=== PATIENT | female | born 1980 | race Caucasian/White ===

== ENCOUNTER → 2019-07-16 | Outpatient (CLI) | payer MEDICAID, OTHER ==
[2019-07-16 13:23] LABS: Basophils # (A) 0.1 k/uL (0-0.2); Basophils % (A) 1 %; Eosinophils # (A) 0.3 k/uL (0-0.7); Eosinophils % (A) 3 %; HGB 15.6 gm/dL (11.4-16.0); Lymphocytes # (A) 3.1 k/uL (1.0-4.8); Lymphocytes % (A) 27 %; MCH 29.7 pg (25.0-35.0); MCHC 33.1 g/dL (31.0-37.0); MCV 89.7 fL (80.0-100.0); Mean Platelet Volume 6.1; Monocytes # (A) 0.5 k/uL (0-1.0); Monocytes % (A) 4 %; Neutrophils # (A) 7.3 k/uL (1.3-7.7); Neutrophils % (A) 64 %; Platelet Count 373 k/uL (150-450); RBC 5.24 m/uL (3.80-5.40); WBC 11.5 k/uL (3.8-10.6)
[2019-07-16 15:20] LABS: Appearance,Urine Clear (Clear); Bilirubin,Urine Negative (Negative); Blood,Urine Negative (Negative); Color,Urine Yellow; Glucose,Urine (UA) Negative (Negative); Ketones,Urine Negative (Negative); Leukocyte Esterase,Urine Negative (Negative); Nitrite,Urine Negative (Negative); PH, Urine 6.5 (5.0-8.0); Protein,Urine Negative (Negative); Specific Gravity,Urine 1.016 (1.001-1.035); Urobilinogen,Urine <2.0 mg/dL (<2.0)
--- NOTE | 2019-07-16 15:27 | XR ---
EXAMINATION TYPE: XR chest 2V DATE OF EXAM: 07/16/2019 CLINICAL HISTORY: Chest pain TECHNIQUE: Frontal and lateral views of the chest are obtained. COMPARISON: None FINDINGS: There is no focal air space opacity, pleural effusion, or pneumothorax seen. The cardiac silhouette size is within normal limits. The osseous structures are intact. IMPRESSION: No acute cardiopulmonary process.
[2019-07-16 15:38] LABS: Erythrocyte Sedimentation Rate 7 mm/hr (0-20)
[2019-07-16 18:45] LABS: Rheumatoid Factor 6 IU/mL (0-15)
[2019-07-16 18:54] LABS: Vitamin D 25 Hydroxy 17.2 ng/mL (30.0-100.0)
[2019-07-16 19:01] LABS: Magnesium 1.9 mg/dL (1.5-2.4); Phosphorus 2.9 mg/dL (2.4-5.1)
[2019-07-16 19:02] LABS: African American GFR (CKD) 93.4 (60.0-200.0); Albumin 4.7 g/dL (3.80-4.90); Albumin/Globulin Ratio 2.14 (1.60-3.17); Anion Gap 8.6 mmol/L (4.00-12.00); BUN/Creat Ratio 12.22 Ratio (12.00-20.00); C Reactive Protein 1.1 mg/dL (0.0-0.8); Calcium 9.6 mg/dL (8.7-10.3); Carbon Dioxide 24.4 mmol/L (21.6-31.8); Chol/HDL Ratio 3.65; Globulin 2.2 g/dL (1.6-3.3); LDL Cholesterol,Calculated 110.4 mg/dL (0.0-131.0); Non-African American GFR(CKD) 80.5 (60.0-200.0); Potassium 4.5 mmol/L (3.5-5.5); Total Bilirubin 0.5 mg/dL (0.3-1.2); Total Protein 6.9 g/dL (6.2-8.2); VLDL Calculation 24.6 mg/dL (5.00-40.00)
[2019-07-16 19:33] LABS: Anti-DNA, DS unit <1.0 IU/mL; Cyclic Citrull Pep IgG Unit <0.5 U/mL; Cyclic Citrullinated Pep IgG NEGATIVE (NEGATIVE); DNA Double-Stranded NEGATIVE (NEGATIVE)
== END | disposition home or self-care (01) ==
LOC: EDSEX → EDBD → LABWHC1 12:24
PROVIDERS: ATTEND Internal Medicine
DX: Z00.00 Encounter for general adult medical examination without abnormal findings (principal); R07.9 Chest pain, unspecified; D64.9 Anemia, unspecified; J44.9 Chronic obstructive pulmonary disease, unspecified; I10 Essential (primary) hypertension; E78.5 Hyperlipidemia, unspecified; N39.0 Urinary tract infection, site not specified; E03.9 Hypothyroidism, unspecified; M19.90 Unspecified osteoarthritis, unspecified site; R80.9 Proteinuria, unspecified; E55.9 Vitamin D deficiency, unspecified; M06.4 Inflammatory polyarthropathy
CPT/HCPCS: 36415; 71046; 80053; 80061; 81003; 82306; 82550; 83735; 84100; 84439; 84443; 85025; 85652; 86038; 86140; 86200; 86225; 86431

== ENCOUNTER → 2019-09-01 | Outpatient (CLI) | payer OTHER ==
--- NOTE | 2019-09-01 13:23 | XR ---
EXAMINATION TYPE: XR lumbar spine 2 or 3V DATE OF EXAM: 09/01/2019 CLINICAL HISTORY: Back pain and sciatica. TECHNIQUE: Frontal and lateral images of the lumbar spine are obtained. COMPARISON: Lumbar spine x-ray December 12, 2009 FINDINGS: There are 5 lumbar type vertebral bodies redemonstrated. The lumbar spine shows satisfact ory alignment without evidence of acute fracture or dislocation. Vertebral body heights remain within normal limits. Uzql-hn-sarricot disc space narrowing and mild anterior spurring L4-L5 level redemons trated. Pypthvvu-[id number]-[id number] disc space narrowing with vacuum disc phenomenon L5-S1 level disc space na rrowing. Overlying soft tissue is unremarkable. IMPRESSION: As above.
--- NOTE | 2019-09-01 13:24 | XR ---
EXAMINATION TYPE: XR thoracic spine complete DATE OF EXAM: 09/01/2019 CLINICAL HISTORY: Back pain and sciatica. TECHNIQUE: Frontal, lateral, and swimmer's view of thoracic spine are obtained. COMPARISON: None. FINDINGS: Exam slightly suboptimal secondary to patient's large body habitus. Thoracic spine show sat isfactory alignment without evidence of acute fracture or dislocation. Vertebral body heights and di sc space heights are preserved. Visualized ribs are unremarkable bilaterally. IMPRESSION: As above.
== END | disposition home or self-care (01) ==
LOC: EDSEX → EDBD → RADXRMAIN 12:31
PROVIDERS: ATTEND Internal Medicine
DX: M99.73 Connective tissue and disc stenosis of intervertebral foramina of lumbar region (principal)
CPT/HCPCS: 72072; 72100

== ENCOUNTER 2019-11-13 11:53 | Emergency (ER) | payer OTHER ==
[2019-11-13] MEDS ORDERED: methylPREDNISolone SOD SUCCI 125 MG/2 ML VIAL IM ONE (13:24)
[2019-11-13] MEDS ORDERED: ORPHENADRINE 30 MG/ML 2 ML VIAL IM STA (13:24)
[2019-11-13] MEDS ORDERED: HYDROcodone/APAP 5-325MG 1 EACH TAB PO STA (13:24)
--- NOTE | 2019-11-13 13:55 | XR ---
EXAMINATION TYPE: XR lumbar spine 2 or 3V , 3 VIEWS DATE OF EXAM ORDERED: 11/13/2019 HISTORY: pain. COMPARISON: Previous study dated 09/01/2019. FINDINGS: There is some straightening of the normal lumbar lordosis. There is disc space loss and L4 -5 and L5-S1. There is a vacuum phenomena present at L4-5. This is unchanged from previous. Alignment is normal. The pedicles are intact. IMPRESSION: 1. NO ACUTE OSSEOUS LESION. 2. DEGENERATIVE DISC DISEASE, L4-5 AND L5-S1.
[2019-11-13] MEDS ORDERED: CYCLOBENZAPRINE 10MG STARTER 3 TAB BTL PO STA (14:15)
[2019-11-13] MEDS ORDERED: ACET/COD 300 MG/30 MG STARTER PACK 6 TAB BTL PO STA (14:15)
--- NOTE | 2019-11-13 14:15 | ED ---
Back Pain HPI - General Chief Complaint: Back Pain/Injury Stated Complaint: Back pain Time Seen by Provider: 11/13/19 12:59 Source: patient, family, RN notes reviewed, old records reviewed - History of Present Illness Initial Comments: 39 year old female with lumbar back pain starting 2 days ago while at physical therapy. Patient reports she is having pain with movement and pain is on R lower back into hip. She deneis radiation down the leg. She reports that she has no saddle anesthesia. Denies redflag symptoms. - Related Data Home Medications Medication Instructions Recorded Confirmed Albuterol Inhaler [Ventolin 1 puff INHALATION RT-Q4H PRN 06/10/14 10/09/16 Inhaler] HYDROcodone/APAP 10-325MG [[facility] 1 tab PO Q6H PRN 06/10/14 10/09/16 10] LORazepam [Ativan] 1 mg PO BID 06/10/14 10/09/16 Methocarbamol [Robaxin] 500 mg PO TID 06/10/14 10/09/16 Pregabalin [Lyrica] 100 mg PO TID 06/10/14 10/09/16 Previous Rx's Medication Instructions Recorded Albuterol Inhaler [Ventolin Hfa 2 puff INHALATION Q6HR PRN #1 10/09/16 Inhaler] inhaler Fluticasone/Salmeterol [Advair 1 inhalation PO BID #1 inhaler 10/09/16 100-50 Diskus] Cyclobenzaprine [Flexeril] 10 mg PO TID #12 tab 11/13/19 Dexamethasone 0.75 mg PO DAILY #12 tab 11/13/19 Allergies Allergy/AdvReac Type Severity Reaction Status Date / Time NSAIDS (Non-Steroidal Allergy Anaphylaxis Verified 10/09/16 11:23 Anti-Inflamma Penicillins Allergy Rash/Hives Verified 10/09/16 11:23 Review of Systems ROS Statement: Those systems with pertinent positive or pertinent negative responses have been documented in the HPI. ROS Other: All systems not noted in ROS Statement are negative. Past Medical History Past Medical History: Asthma Additional Past Medical History / Comment(s): chronic back pain History of Any Multi-Drug Resistant Organisms: MRSA Date of last positivie culture/infection: 06/11/2014 MDRO Source:: Right Axilla Past Surgical History: Tubal Ligation Additional Past Surgical History / Comment(s): spinal steroid injections Past Psychological History: Anxiety, Depression Smoking Status: Current every day smoker Past Alcohol Use History: Occasional Past Drug Use History: Marijuana General Exam - General Exam Comments Initial Comments: 39 year old female, sitting in bed. No acute distress. General appearance: alert, in no apparent distress Head exam: Present: atraumatic, normocephalic, normal inspection Eye exam: Present: normal appearance, PERRL, EOMI. Absent: scleral icterus, conjunctival injection, periorbital swelling ENT exam: Present: normal exam, mucous membranes moist Neck exam: Present: normal inspection. Absent: tenderness, meningismus, lymphadenopathy Respiratory exam: Present: normal lung sounds bilaterally. Absent: respiratory distress, wheezes, rales, rhonchi, stridor Cardiovascular Exam: Present: regular rate, normal rhythm, normal heart sounds. Absent: systolic murmur, diastolic murmur, rubs, gallop, clicks Extremities exam: Present: normal inspection, full ROM, normal capillary refill. Absent: tenderness, pedal edema, joint swelling, calf tenderness Back exam: Present: normal inspection, tenderness (lumbar spine, adn right paraspinal lumbar muscle. No erythema, rashes, or bruising. ) Course Vital Signs 11/13/19 11/13/19 12:15 14:28 Temperature 98.5 F 98.2 F Pulse Rate 74 67 Respiratory 18 20 Rate Blood Pressure 114/82 127/88 O2 Sat by Pulse 98 99 Oximetry Medical Decision Making - Medical Decision Making 39 year old female with lumbar back pain after doing PT. Patient has tenderness over lumbar spine and right paraspinal muscles. Patient has no saddle anesthisa and no redflag symptoms. Xray shows no acute osseous changes and does show degenerative changes L4-L5 and L5-S1. Discussed treatment with motrin and tylenol. Patient given IM pain medications and feels better. Discussed return parameters. - Radiology Data Radiology results: report reviewed No acute osseous disease, degenerative changes L4-L5, L5-S1. Disposition Clinical Impression: Lumbar paraspinal muscle spasm, Right low back pain Disposition: HOME SELF-CARE Condition: Good Instructions (If sedation given, give patient instructions): Muscle Spasm (ED) Additional Instructions: Patient advised to use a steroids, muscle x-rays and pain medication as prescribed. Have close follow-up with your primary care physician. Return to emergency department if any alarming signs or symptoms occur. Prescriptions: Dexamethasone 0.75 mg PO DAILY #12 tab Cyclobenzaprine [Flexeril] 10 mg PO TID #12 tab Is patient prescribed a controlled substance at d/c from ED?: No Referrals: Siddhartha Reid MD [Primary Care Provider] - 1-2 days Time of Disposition: 14:13
[2019-11-13 14:30] VITALS: BP 127/88; PULSE 67; RESP 20; TEMP 98.2
== END 2019-11-13 14:27 | disposition home or self-care (01) ==
LOC: EC 11:53
DX: M47.817 Spondylosis without myelopathy or radiculopathy, lumbosacral region (principal); M47.816 Spondylosis without myelopathy or radiculopathy, lumbar region; M62.830 Muscle spasm of back; G89.29 Other chronic pain; J45.909 Unspecified asthma, uncomplicated; F41.9 Anxiety disorder, unspecified; F32.9 Major depressive disorder, single episode, unspecified; F17.200 Nicotine dependence, unspecified, uncomplicated; Z79.899 Other long term (current) drug therapy; Z79.51 Long term (current) use of inhaled steroids; Z88.0 Allergy status to penicillin; Z88.6 Allergy status to analgesic agent; Z86.14 Personal history of Methicillin resistant Staphylococcus aureus infection
CPT/HCPCS: 72100; 99284; 96372 ×2; J2360; J2930

== ENCOUNTER → 2020-04-12 | Outpatient (CLI) | payer OTHER ==
--- NOTE | 2020-04-12 19:34 | CONS ---
CONSULTATION DATE OF SERVICE: 04/12/2020 This patient is a 39-year-old lady who has been evaluated in Sleep Center for obstructive sleep apnea-hypopnea syndrome. HISTORY OF PRESENT ILLNESS/SLEEP-WAKE EVALUATION: Patient's usual sleep schedule is from 11 p.m. to 8:30 a.m. Sometimes she has problems with falling asleep. She has a TV set in the bedroom. She sleeps on her side and sometimes in different positions with her . According to him, she has loud snoring and witnessed episodes of stopped breathing during sleep. Patient was diagnosed with obstructive sleep apnea 6 years ago in another institution and she quit using her CPAP equipment 2 years ago. She does not have any CPAP equipment at the present time. During the night she wakes up up to 4 times with one episode of nocturia. In the morning she wakes up tired, has episodes of irritability, anxiety. [place] Sleepiness Scale is 9. PAST MEDICAL HISTORY: Positive for hypertension, asthma, meniscus problems. PAST SURGICAL HISTORY: Tubal ligation, meniscal repair. MEDICATIONS: Albuterol, lisinopril, tramadol. SOCIAL HISTORY: Positive for occasionally using alcohol. Negative for smoking. FAMILY HISTORY: Heart problems. Stroke. PHYSICAL EXAMINATION: GENERAL: A pleasant lady without distress. VITAL SIGNS: BP 117/84, HR 98, RR 16, height 5 feet 9 inches, weight 385, BMI 56.8, temperature 98.5, oxygen saturation at room air 97%. HEENT: PERRLA, EOMI. Evaluation of oropharynx showed tongue protrudes midline. Extremely low position of soft palate. Mallampati IV. NECK: Supple. No JVD. Thyroid is not palpable. Wide neck; 16-1/2 inches in circumference. LUNGS: Clear to percussion and to auscultation. Good air exchange. No wheezing or rhonchi. HEART: S1, S2 regular. No murmurs, gallops or rubs. ABDOMEN: Obese. EXTREMITIES: No clubbing or cyanosis. FIBERGLASS BOAT PARTS FINISHER: Awake, alert, and oriented X3. Cranial nerves 2 to 7 intact. There is no fasciculation or atrophy. noted. No focal deficits observed. IMPRESSION: 1. Snoring, witnessed episodes of stopped breathing during sleep, history of obstructive sleep apnea in the past, small oropharyngeal air space, wide neck, positive history of twitching muscles and legs during the night, sleeptalking; obstructive sleep apnea-hypopnea syndrome. 2. Obesity. 3. Possible periodic limb movement syndrome. 4. History of sleeptalking. 5. Hypertension. 6. Asthma. 7. Status post meniscus repair. 8. Status post tubal ligation. PLAN: 1. Polysomnography for evaluation of patient's breathing during sleep. 2. CPAP/BiPAP titration if sleep study confirms obstructive sleep apnea-hypopnea syndrome. 3. Preferable position during sleep on the side. 4. No driving if patient feels any sleepiness. 5. I will see patient for follow up visit to explain results of testing and following plan. Thank you very much for referring this patient for consultation. Sincerely, Arnav Vicente MD, PhD, FAASM Diplomat of [place] [employer] [place] [employer] Director Of Marketing [employer] of [facility] [place] MMXAVIER / ENRIQUE: [id number] /
== END | disposition home or self-care (01) ==
LOC: SLEEP 15:09
PROVIDERS: ATTEND Internal Medicine
DX: G47.33 Obstructive sleep apnea (adult) (pediatric) (principal); I10 Essential (primary) hypertension; J45.909 Unspecified asthma, uncomplicated; E66.9 Obesity, unspecified; Z99.89 Dependence on other enabling machines and devices; Z79.891 Long term (current) use of opiate analgesic; Z79.899 Other long term (current) drug therapy; Z98.51 Tubal ligation status
CPT/HCPCS: 99211

== ENCOUNTER → 2020-10-26 | Outpatient (CLI) | payer OTHER ==
--- NOTE | 2020-10-27 00:49 | SFUN ---
SLEEP CENTER FOLLOW UP NOTE DATE OF SERVICE: 10/26/2020 40-year-old lady has been followed in Sleep Center for treatment of obstructive sleep apnea-hypopnea syndrome. Recently, patient had a polysomnogram which showed extremely severe obstructive sleep apnea with apnea-hypopnea index 66 and oxygen desaturation to 76%. The patient has had CPAP titration, respiration was normalized. her CPAP unit. Today is her first visit after she was started on treatment with CPAP. The patient is able to use CPAP equipment, feels sleeping better with that and feels better during the day, but she feels some irritation from the nasal mask. I checked CPAP unit. CPAP pressure is 11 cm of water. Usage is 16 out of 30 nights and 11 out of 30 nights more than 4 hours. Average usage 4.8 hours per night. Leak is 14 L/minute which is borderline. Apnea-hypopnea index only 1.6, which is absolutely perfect. [place] Sleepiness Scale today is 7, which is normal. MEDICATIONS: Albuterol, lorazepam. PHYSICAL EXAM: Patient in no distress. BP 112/71, HR 94, RR 18, weight 344, temp is 98.8, oxygen saturation at room air 97%. Oropharynx: Extremely low position of soft palate. Mallampati 4. NECK: Supple, no JVD. Thyroid is not palpable. LUNGS: Clear to percussion and to auscultation. Good air exchange. No wheezing or rhonchi. HEART: S1, S2 regular. No murmurs, gallops, or rubs. ABDOMEN: Obese. Soft and nontender. Bowel sounds are present. No organomegaly appreciated. EXTREMITIES: No clubbing or cyanosis. SAND WHEELER: Awake, alert, and oriented X3. Cranial nerves 2 to 7 intact. There is no fasciculation or atrophy. noted. No focal deficits observed. IMPRESSION: 1. Severe obstructive sleep apnea-hypopnea syndrome. AHI 66 with O2 desaturation to 76% on control with CPAP at 11 cm of water. Respiration is normal at that pressure. The patient started to use CPAP equipment, but has problem related to the mask. 2. Obesity. 3. History of sleep talking. 4. Hypertension. 5. Asthma. 6. Status post meniscus repair. 7. Status post tubal ligation. PLAN: 1. We will try nasal pillow mask. I wrote prescription for [employer] FX nasal pillows. 2. I again explained to the patient necessity to use CPAP unit every night for the whole night. Patient promised to do so. 3. Patient will continue to use PAP equipment every night for the whole night. 4. Sleep hygiene with regular time in bed for at least 7-1/2 to 8 hours. 5. Precautions related to driving. No driving if feeling sleepiness. 6. I will maintain all necessary prescription for PAP supplies including mask, tube, filters. 7. Watching weight. 8. No driving if feeling sleepiness. 9. Follow-up visit in 6 months or earlier if patient has any problems. Thank you very much for allowing me to participate in management of your patient. Sincerely, Arnav Vicente MD, PhD, FAASM Diplomat of [place] [employer] Center Human Resources Manager of [facility] [place] KIMBER / ENRIQUE: [id number] /
== END | disposition home or self-care (01) ==

== ENCOUNTER → 2021-02-01 | Outpatient (CLI) | payer OTHER ==
--- NOTE | 2021-02-01 23:16 | SFUN ---
SLEEP CENTER FOLLOW UP NOTE DATE OF SERVICE: 02/01/2021. 40-year-old lady who has been followed in Sleep Center for treatment of obstructive sleep apnea-hypopnea syndrome. The patient successfully continues to use his CPAP equipment every night for the whole night. Sleeps well with the equipment. No snoring with the machine. [place] Sleepiness Scale today slightly increased to 11. I checked his CPAP unit. CPAP pressure is 11 cm of water. Usage is 27/30 nights and 24/30 nights for more than 4 hours. Apnea-hypopnea index of 0.6, which is perfect. Leak is 16 with this per minutes which is borderline. MEDICATIONS: Lisinopril, albuterol. PHYSICAL EXAM: Patient in no distress. BP 109/65, HR 71, RR 12, height 5 feet 10 inches, weight 364, temperature 98.5, oxygen saturation on room air 97%. Oropharynx extremely low position of soft palate. Mallampati IV. NECK: Supple, no JVD. Thyroid is not palpable. LUNGS: Clear to percussion and to auscultation. Good air exchange. No wheezing or rhonchi. HEART: S1, S2 regular. No murmurs, gallops, or rubs. ABDOMEN: Obese. Soft and nontender. Bowel sounds are present. No organomegaly appreciated. EXTREMITIES: No clubbing or cyanosis. BRIAR SHOP SUPERVISOR: Awake, alert, and oriented X3. Cranial nerves 2 to 7 intact. There is no fasciculation or atrophy. noted. No focal deficits observed. IMPRESSION: 1. Severe obstructive sleep apnea-hypopnea syndrome, HR 66 with oxygen desaturation to 76%. Patient demonstrated 100% compliance with treatment, benefitting from treatment normal respiration on CPAP. 2. Hypertension. 3. Obesity. 4. History of sleep talking. 5. Asthma. 6. Status post meniscus repair. 7. Status post tubal ligation. PLAN: The patient will continue to use nasal O2 pillow mask. I recommended to try to use AYR gel. 1. Patient will continue to use PAP equipment every night for the whole night. 2. Sleep hygiene with regular time in bed for at least 7-1/2 to 8 hours. 3. Precautions related to driving. No driving if feeling sleepiness. 4. I will maintain all necessary prescription for PAP supplies including mask, tube, filters. 5. Watching weight. 6. Follow-up visit in 6 months or earlier if patient has any problems. Thank you very much for allowing me to participate in management of your patient. Sincerely, Arnav Vicente MD, PhD, FAASM Diplomat of [place] [employer] [employer] Grocery Clerk [employer] of [facility] [place] KIMBER / ENRIQUE: [id number] /
== END | disposition home or self-care (01) ==

== ENCOUNTER 2021-02-28 09:16 | Emergency (ER) | payer OTHER ==
[2021-02-28 09:22] VITALS: RESP 18; TEMP 97.8
[2021-02-28] MEDS ORDERED: SODIUM CHLORIDE 0.9% 500 ML 500 ML IV ONE (09:51)
--- NOTE | 2021-02-28 10:01 | ED ---
General Adult HPI - General Chief complaint: Vaginal Bleeding Stated complaint: vaginal bleeding Time Seen by Provider: 02/28/21 09:22 Source: patient Mode of arrival: ambulatory Limitations: no limitations - History of Present Illness Initial comments: 40-year-old female with a past medical history of asthma, chronic back pain tubal ligation presents to the emergency room for vaginal bleeding. Patient reports that she woke up this morning with vaginal bleeding. States she did have an appointment with her primary care doctor because she had been having some abdominal pain and thought it was likely a hernia. However when she started bleeding she called her doctor who told her to come to the emergency room. Patient states she had a NovaSure done 10 years ago and has not had any bleeding since that time. Patient reports she does not currently follow with any [facility]IP [facility]. She denies lightheadedness.Patient has no other complaints at this time including shortness of breath, chest pain, nausea or vomiting, headache, or visual changes. - Related Data Home Medications Medication Instructions Recorded Confirmed No Known Home Medications 02/28/21 02/28/21 Allergies Allergy/AdvReac Type Severity Reaction Status Date / Time latex Allergy Unknown Verified 02/28/21 10:57 Milk Containing Products Allergy Unknown Verified 02/28/21 10:57 [Dairy] NSAIDS (Non-Steroidal Allergy Anaphylaxis Verified 02/28/21 10:57 Anti-Inflamma Penicillins Allergy Rash/Hives Verified 02/28/21 10:57 morphine AdvReac "does not Verified 02/28/21 10:57 work" Review of Systems ROS Statement: Those systems with pertinent positive or pertinent negative responses have been documented in the HPI. ROS Other: All systems not noted in ROS Statement are negative. Past Medical History Past Medical History: Asthma Additional Past Medical History / Comment(s): chronic back pain History of Any Multi-Drug Resistant Organisms: MRSA Date of last positivie culture/infection: 06/11/2014 MDRO Source:: Right Axilla Past Surgical History: Tubal Ligation Additional Past Surgical History / Comment(s): spinal steroid injections Past Psychological History: Anxiety, Depression Smoking Status: Current every day smoker Past Alcohol Use History: Occasional Past Drug Use History: Marijuana General Exam Limitations: no limitations General appearance: alert, in no apparent distress Head exam: Present: atraumatic, normocephalic, normal inspection Eye exam: Present: normal appearance, PERRL, EOMI. Absent: scleral icterus, conjunctival injection, periorbital swelling ENT exam: Present: normal exam, mucous membranes moist Neck exam: Present: normal inspection. Absent: tenderness, meningismus, lymphadenopathy Respiratory exam: Present: normal lung sounds bilaterally. Absent: respiratory distress, wheezes, rales, rhonchi, stridor Cardiovascular Exam: Present: regular rate, normal rhythm, normal heart sounds. Absent: systolic murmur, diastolic murmur, rubs, gallop, clicks GI/Abdominal exam: Present: soft, normal bowel sounds. Absent: distended, tenderness, guarding, rebound, rigid External exam: Present: normal external exam. Absent: erythema, swelling, lesions, lacerations, ecchymosis Speculum exam: Present: vaginal bleeding. Absent: normal speculum exam, erythema, vaginal discharge, cervical discharge, foreign body, tissue, laceration By manual exam: Present: normal by manual exam. Absent: cervical motion tenderness, adnexal tenderness, adnexal mass, uterine enlargement, uterine tend erness Neurological exam: Present: alert Course Vital Signs 02/28/21 09:18 Temperature 97.8 F Pulse Rate 99 Respiratory 18 Rate Blood Pressure 128/74 O2 Sat by Pulse 100 Oximetry Medical Decision Making - Medical Decision Making Vitals are stable. Patient is well-appearing. I'll exam did reveal mild vaginal bleeding coming from the cervix. CBC shows a white count of 15. She will be treated for a urinary tract infection, this will be cultured. Ult rasound did reveal at the myometrium is slightly heterogeneous which made be seen with adenomyosis or diffuse small fibroid change. Ultrasound did show a little hemorrhagic cyst which is likely because of the patient's pain on the left ovary. Patient's pain is controlled at this time. Patient is stable. Patient be discharged home to follow up with primary care and [facility]. We do recommend follow-up with [facility], patient may need biopsy. Return to return for any worsening symptoms. I discussed this case with attending Dr. Schwab who agrees with this assessment and treatment plan. - Lab Data Result diagrams: 02/28/21 10:03 02/28/21 10:03 Lab Results 02/28/21 02/28/21 02/28/21 Range/Units 10:03 10:03 10:03 WBC 15.3 H (3.8-10.6) k/uL RBC 5.36 (3.80-5.40) m/uL Hgb 14.6 (11.4-16.0) gm/dL Hct 46.2 H (34.0-46.0) % MCV 86.1 (80.0-100.0) fL MCH 27.3 (25.0-35.0) pg MCHC 31.7 (31.0-37.0) g/dL RDW 13.8 (11.5-15.5) % Plt Count 349 (150-450) k/uL MPV 7.2 Neutrophils % 74 % Lymphocytes % 18 % Monocytes % 4 % Eosinophils % 3 % Basophils % 1 % Neutrophils # 11.4 H (1.3-7.7) k/uL Lymphocytes # 2.7 (1.0-4.8) k/uL Monocytes # 0.6 (0-1.0) k/uL Eosinophils # 0.4 (0-0.7) k/uL Basophils # 0.1 (0-0.2) k/uL Sodium (137-145) mmol/L Potassium (3.5-5.1) mmol/L Chloride (98-107) mmol/L Carbon Dioxide (22-30) mmol/L Anion Gap mmol/L BUN (7-17) mg/dL Creatinine (0.52-1.04) mg/dL Est GFR (CKD-EPI)AfAm (>60 ml/min/1.73 sqM) Est GFR (CKD-EPI)NonAf (>60 ml/min/1.73 sqM) Glucose (74-99) mg/dL Calcium (8.4-10.2) mg/dL Total Bilirubin (0.2-1.3) mg/dL AST (14-36) U/L ALT (4-34) U/L Alkaline Phosphatase (38-126) U/L Total Protein (6.3-8.2) g/dL Albumin (3.5-5.0) g/dL Urine Color Yellow Urine Appearance Cloudy H (Clear) Urine pH 6.0 (5.0-8.0) Ur Specific [place] 1.016 (1.001-1.035) Urine Protein Trace H (Negative) Urine Glucose (UA) Negative (Negative) Urine Ketones Negative (Negative) Urine Blood Large H (Negative) Urine Nitrite Negative (Negative) Urine Bilirubin Negative (Negative) Urine Urobilinogen <2.0 (<2.0) mg/dL Ur Leukocyte Esterase Large H (Negative) Urine RBC >182 H (0-5) /hpf Urine WBC 110 H (0-5) /hpf Urine WBC Clumps Few H (None) /hpf Ur Squamous Epith Cells 3 (0-4) /hpf Urine Bacteria Moderate H (None) /hpf Urine Mucus Rare H (None) /hpf Urine HCG, Qual Not Detected (Not Detectd) 02/28/21 Range/Units 10:03 WBC (3.8-10.6) k/uL RBC (3.80-5.40) m/uL Hgb (11.4-16.0) gm/dL Hct (34.0-46.0) % MCV (80.0-100.0) fL MCH (25.0-35.0) pg MCHC (31.0-37.0) g/dL RDW (11.5-15.5) % Plt Count (150-450) k/uL MPV Neutrophils % % Lymphocytes % % Monocytes % % Eosinophils % % Basophils % % Neutrophils # (1.3-7.7) k/uL Lymphocytes # (1.0-4.8) k/uL Monocytes # (0-1.0) k/uL Eosinophils # (0-0.7) k/uL Basophils # (0-0.2) k/uL Sodium 139 (137-145) mmol/L Potassium 4.3 (3.5-5.1) mmol/L Chloride 110 H (98-107) mmol/L Carbon Dioxide 21 L (22-30) mmol/L Anion Gap 8 mmol/L BUN 11 (7-17) mg/dL Creatinine 0.69 (0.52-1.04) mg/dL Est GFR (CKD-EPI)AfAm >90 (>60 ml/min/1.73 sqM) Est GFR (CKD-EPI)NonAf >90 (>60 ml/min/1.73 sqM) Glucose 101 H (74-99) mg/dL Calcium 9.2 (8.4-10.2) mg/dL Total Bilirubin 0.3 (0.2-1.3) mg/dL AST 15 (14-36) U/L ALT 10 (4-34) U/L Alkaline Phosphatase 80 (38-126) U/L Total Protein 6.3 (6.3-8.2) g/dL Albumin 3.6 (3.5-5.0) g/dL Urine Color Urine Appearance (Clear) Urine pH (5.0-8.0) Ur Specific [place] (1.001-1.035) Urine Protein (Negative) Urine Glucose (UA) (Negative) Urine Ketones (Negative) Urine Blood (Negative) Urine Nitrite (Negative) Urine Bilirubin (Negative) Urine Urobilinogen (<2.0) mg/dL Ur Leukocyte Esterase (Negative) Urine RBC (0-5) /hpf Urine WBC (0-5) /hpf Urine WBC Clumps (None) /hpf Ur Squamous Epith Cells (0-4) /hpf Urine Bacteria (None) /hpf Urine Mucus (None) /hpf Urine HCG, Qual (Not Detectd) Disposition Clinical Impression: Dysfunctional uterine bleeding, Hemorrhagic cyst of left ovary Disposition: HOME SELF-CARE Condition: Good Instructions (If sedation given, give patient instructions): Ruptured Ovarian Cyst (ED), Dysfunctional Uterine Bleeding (ED) Additional Instructions: Please follow up with [facility] by calling your insurance to see which providers they cover. Please do this within the next week. Follow-up with your primary care provider as well. If you have worsening bleeding or lightheadedness return to the emergency room. Is patient prescribed a controlled substance at d/c from ED?: No Referrals: Siddhartha Reid MD [Primary Care Provider] - 1-2 days Chucho Conner MD [STAFF PHYSICIAN] - 1-2 days Time of Disposition: 11:18
[2021-02-28 10:30] LABS: ALT 10 U/L (4-34); AST 15 U/L (14-36); African American GFR (CKD) >90 (>60 ml/min/1.73 sqM); Albumin 3.6 g/dL (3.5-5.0); Alkaline Phosphatase 80 U/L (38-126); Anion Gap 8 mmol/L; Appearance,Urine Cloudy (Clear); Bacteria,Urine Moderate /hpf; Bilirubin,Urine Negative (Negative); Blood Urea Nitrogen 11 mg/dL (7-17); Blood,Urine Large (Negative); Calcium 9.2 mg/dL (8.4-10.2); Carbon Dioxide 21 mmol/L (22-30); Chloride 110 mmol/L (98-107); Color,Urine Yellow; Glucose 101 mg/dL (74-99); Glucose,Urine (UA) Negative (Negative); Ketones,Urine Negative (Negative); Leukocyte Esterase,Urine Large (Negative); Mucus,Urine Rare /hpf; Nitrite,Urine Negative (Negative); Non-African American GFR(CKD) >90 (>60 ml/min/1.73 sqM); Potassium 4.3 mmol/L (3.5-5.1); Protein,Urine Trace (Negative); RBC,Urine >182 /hpf (0-5); Sodium 139 mmol/L (137-145); Specific Gravity,Urine 1.016 (1.001-1.035); Squamous Epithelial Cell,Urine 3 /hpf (0-4); Total Bilirubin 0.3 mg/dL (0.2-1.3); Total Protein 6.3 g/dL (6.3-8.2); Urobilinogen,Urine <2.0 mg/dL (<2.0); WBC,Urine 110 /hpf (0-5)
[2021-02-28 10:49] LABS: Basophils # (A) 0.1 k/uL (0-0.2); Basophils % (A) 1 %; Eosinophils # (A) 0.4 k/uL (0-0.7); Eosinophils % (A) 3 %; HCT 46.2 % (34.0-46.0); HGB 14.6 gm/dL (11.4-16.0); Lymphocytes # (A) 2.7 k/uL (1.0-4.8); Lymphocytes % (A) 18 %; MCH 27.3 pg (25.0-35.0); MCHC 31.7 g/dL (31.0-37.0); MCV 86.1 fL (80.0-100.0); Mean Platelet Volume 7.2; Monocytes # (A) 0.6 k/uL (0-1.0); Monocytes % (A) 4 %; Neutrophils # (A) 11.4 k/uL (1.3-7.7); Neutrophils % (A) 74 %; Platelet Count 349 k/uL (150-450); RBC 5.36 m/uL (3.80-5.40); RDW 13.8 % (11.5-15.5); WBC 15.3 k/uL (3.8-10.6)
--- NOTE | 2021-02-28 10:54 | US ---
EXAMINATION TYPE: US transvaginal plus Dopplers DATE OF EXAM: 02/28/2021 COMPARISON: None CLINICAL HISTORY: Vna-ajfc-dgn female pain, bleeding. Patient had an ablation in 2009. Started bleed ing today. Patient states slight abdomen pain. TECHNIQUE: Transvaginal (TV). Color Doppler and spectral waveform analysis of the ovarian arteries and veins. Date of LMP: 2009 FINDINGS: EXAM MEASUREMENTS: Uterus: 7.4 x 3.5 x 3.4 cm Endometrial Stripe: 0.4 cm Left Ovary: 3.4 x 2.2 x 1.8 cm 1. Uterus: Anteverted. Myometrium is slightly heterogeneous 2. Endometrium: limited visualization possibly due to ablation, estimated at 4 mm. 3. Right Ovary: Obscured by overlying bowel gas 4. Left Ovary: simple cystic lesion = 1.9 x 2.2 x 1.7 cm. Complex cyst with peripheral vascular cierra w - 1.7 x 1.4 x 1.6 cm Spectral, color and waveform doppler imaging shows good arterial and venous flow within the left ov teresa; there is no evidence for ovarian torsion. 5. Bilateral Adnexa: wnl 6. Posterior cul-de-sac: no free fluid IMPRESSION: 1. The myometrium is slightly heterogeneous. This may be seen with adenomyosis or diffuse small fibro id change. 2. Poor delineation of the endometrium likely product of patient's previous ablation. 3. Unable to visualize the right ovary. 4. No sonographic evidence for ovarian torsion on the left. There is a probable hemorrhagic cyst zachary uring 1.7 cm and a dominant follicle measuring 2.2 cm. Follow-up exam in 6-8 weeks can ensure involut ion.
[2021-02-28 12:06] VITALS: BP 123/86; PULSE 89
== END 2021-02-28 11:40 | disposition home or self-care (01) ==
LOC: EC 09:16
DX: N93.8 Other specified abnormal uterine and vaginal bleeding (principal); N83.202 Unspecified ovarian cyst, left side; J45.909 Unspecified asthma, uncomplicated; F17.200 Nicotine dependence, unspecified, uncomplicated; Z88.0 Allergy status to penicillin; Z88.5 Allergy status to narcotic agent; Z88.6 Allergy status to analgesic agent; Z91.040 Latex allergy status
CPT/HCPCS: 36415; 76830; 80053; 81001; 81025; 85025; 86850; 86900; 86901; 87086; 93976; 99284

== ENCOUNTER → 2021-07-05 | Outpatient (CLI) | payer OTHER ==
[2021-07-05 14:08] LABS: Basophils # (A) 0.08 X 10*3/uL (0.00-0.10); Basophils % (A) 0.8 %; Eosinophils % (A) 5.2 %; HCT 44.9 % (37.2-46.3); HGB 14.5 g/dL (12.0-15.0); Lymphocytes # (A) 2.98 X 10*3/uL (0.90-5.00); Lymphocytes % (A) 30.9 %; MCH 28.8 pg (27.0-32.0); MCHC 32.3 g/dL (32.0-37.0); MCV 89.1 fL (80.0-97.0); Mean Platelet Volume 9.5 fL (9.5-12.2); Monocytes % (A) 6.2 %; Neutrophils # (A) 5.47 X 10*3/uL (1.80-7.70); Neutrophils % (A) 56.7 %; Platelet Count 347 X 10*3/uL (140-440); RBC 5.04 X 10*6/uL (4.10-5.20); RDW 14.6 % (11.5-14.5); WBC 9.65 X 10*3/uL (4.50-10.00)
[2021-07-05 16:25] LABS: Erythrocyte Sedimentation Rate 5 mm/Hr (0-20)
[2021-07-05 23:51] LABS: African American GFR (CKD) 92.7 (60.0-200.0); Albumin 4.4 g/dL (3.80-4.90); Albumin/Globulin Ratio 2.2 (1.60-3.17); Anion Gap 8.6 mmol/L (4.00-12.00); BUN/Creat Ratio 16.67 Ratio (12.00-20.00); C Reactive Protein 0.4 mg/dL (0.0-0.8); Calcium 9.2 mg/dL (8.7-10.3); Carbon Dioxide 24.4 mmol/L (21.6-31.8); Chol/HDL Ratio 3.14; Magnesium 1.9 mg/dL (1.5-2.4); Phosphorus 3.4 mg/dL (2.4-5.1); Potassium 4.7 mmol/L (3.5-5.5); Total Bilirubin 0.4 mg/dL (0.3-1.2); Total Protein 6.4 g/dL (6.2-8.2)
== END | disposition home or self-care (01) ==
LOC: LABWHC1 10:55
PROVIDERS: ATTEND Internal Medicine
DX: D64.9 Anemia, unspecified (principal); J44.9 Chronic obstructive pulmonary disease, unspecified; E87.0 Hyperosmolality and hypernatremia; E78.5 Hyperlipidemia, unspecified; E03.9 Hypothyroidism, unspecified; E66.9 Obesity, unspecified; J06.9 Acute upper respiratory infection, unspecified; N93.9 Abnormal uterine and vaginal bleeding, unspecified; F17.200 Nicotine dependence, unspecified, uncomplicated
CPT/HCPCS: 36415; 80053; 80061; 82306; 82550; 83735; 84100; 84443; 85025; 85652; 86140

== ENCOUNTER → 2021-07-12 | Outpatient (CLI) | payer OTHER ==
--- NOTE | 2021-07-16 11:11 | MM ---
Reason for exam: screening (asymptomatic). Baseline mammogram. History: Family history of breast cancer in maternal grandmother. Took hormonal contraceptives for 2 years beginning at age 18. Physical Findings: Nurse did not find any significant physical abnormalities on exam. MG Screening Mammo w CAD Bilateral CC, MLO, and XCCL view(s) were taken. There are scattered fibroglandular densities. There are benign appearing, few scattered, round calcifications bilaterally. There is no discrete abnormality. Benign lymph nodes in axilla bilaterally. ASSESSMENT: Benign, BI-RAD 2 RECOMMENDATION: Routine screening mammogram of both breasts in 1 year.
== END | disposition home or self-care (01) ==
LOC: RADMAMWWP 09:56
PROVIDERS: ATTEND Internal Medicine
DX: Z12.31 Encounter for screening mammogram for malignant neoplasm of breast (principal); Z80.3 Family history of malignant neoplasm of breast
CPT/HCPCS: 77067

== ENCOUNTER → 2021-12-05 | Outpatient (CLI) | payer OTHER ==
[2021-12-05 14:12] LABS: Basophils % (A) 0.8 %; Eosinophils # (A) 0.37 X 10*3/uL (0.04-0.35); Eosinophils % (A) 2.9 %; HGB 15.2 g/dL (12.0-15.0); Immature Grans, Automated 0.3 %; Lymphocytes # (A) 4.37 X 10*3/uL (0.90-5.00); Lymphocytes % (A) 34.1 %; MCH 28.3 pg (27.0-32.0); MCHC 31.7 g/dL (32.0-37.0); MCV 89.2 fL (80.0-97.0); Mean Platelet Volume 9.7 fL (9.5-12.2); Monocytes # (A) 0.94 X 10*3/uL (0.20-1.00); Monocytes % (A) 7.3 %; NRBC Per 100 WBC 0 /100 WBCS (0.0-0.0); Neutrophils % (A) 54.6 %; Platelet Count 387 X 10*3/uL (140-440); RBC 5.38 X 10*6/uL (4.10-5.20); RDW 14.7 % (11.5-14.5); WBC 12.82 X 10*3/uL (4.50-10.00)
[2021-12-05 14:47] LABS: Erythrocyte Sedimentation Rate 14 mm/Hr (0-20)
[2021-12-05 19:23] LABS: ALT 15 U/L (8-44); AST 13 U/L (13-35); African American GFR (CKD) 97.3 (60.0-200.0); Albumin 4.2 g/dL (3.8-4.9); Albumin/Globulin Ratio 1.71 (1.60-3.17); Alkaline Phosphatase 64 U/L (41-126); BUN/Creat Ratio 13.02 Ratio (12.00-20.00); Blood Urea Nitrogen 11.2 mg/dL (9.0-27.0); C Reactive Protein <0.30 mg/dL (0.00-0.80); Carbon Dioxide 20.4 mmol/L (20.0-27.5); Chloride 106 mmol/L (96-109); Creatine Kinase 24 U/L (26-186); Globulin 2.4 g/dL (1.6-3.3); Glucose 75 mg/dL (70-110); Non-African American GFR(CKD) 83.9 (60.0-200.0); Potassium 4.2 mmol/L (3.5-5.5); Sodium 140 mmol/L (135-145); Total Protein 6.6 g/dL (6.2-8.2)
--- NOTE | 2021-12-05 23:28 | XR ---
EXAMINATION TYPE: XR chest 2V DATE OF EXAM: 12/05/2021 COMPARISON: X-ray dated 07/16/2019 HISTORY: Cough and shortness of breath TECHNIQUE: Frontal and lateral views of the chest are obtained. FINDINGS: Grossly unremarkable lungs. No pleural effusion or pneumothorax. No cardiomegaly. No aggre ssive bone lesion. IMPRESSION: No significant abnormality identified.
== END | disposition home or self-care (01) ==
LOC: LABWHC1 09:58
PROVIDERS: ATTEND Internal Medicine
DX: E03.9 Hypothyroidism, unspecified (principal); E66.9 Obesity, unspecified; J12.9 Viral pneumonia, unspecified; J06.9 Acute upper respiratory infection, unspecified; E55.9 Vitamin D deficiency, unspecified; D64.9 Anemia, unspecified; R06.02 Shortness of breath; R05.9 Cough, unspecified; Z86.16 Personal history of COVID-19
CPT/HCPCS: 36415; 71046; 80053; 82306; 82550; 83036; 84439; 84443; 85025; 85652; 86140

== ENCOUNTER → 2022-05-08 | Outpatient (CLI) | payer OTHER ==
--- NOTE | 2022-05-08 17:44 | P.PN ---
Subjective DATE: 05/08/2022 FOLLOW UP VISIT. Patient with obstructive sleep apnea hypopnea syndrome return to sleep center for follow-up visit. Information from previous visit have been reviewed. Patient is using PAP equipment every night for the whole night, getting PAP supplies in time. The patient does not have significant problems with the mask, PAP unit and humidification. [place] sleepiness scale is increased to 13. I checked information from PAP unit. PAP unit pressure 11 cm H2O. Usage is 100% night's and to 80 % for more then 4 hours, average 9.7 hours per night. Leak is 8 l/m, which is in acceptable range. Apnea Hypopnea Index is 1.4, which is normal. MEDICATIONS:1. [place], 7.5 mg up to 3 times a day 2. Prozac 10 mg once a day 3. Flexeril 10 mg twice a day During physical exam: GENERAL: A pleasant patient without any distress. VITAL SIGNS: BP 119/80, HR 71, RR 16 , weight 419.8, temperature 97.4, oxygen saturation at room air 97 % . HEENT: PERRLA, EOMI.low position of soft palate, Mallapati 4 . NECK: Supple. No JVD. LUNGS: Clear to percussion and to auscultation. Good air exchange. No wheezing or rhonchi. HEART: S1, S2 regular. ABDOMEN: Soft and nontender. Obese EXTREMITIES: No clubbing or cyanosis. 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 No focal deficit. Impressions: 1. Obstructive sleep apnea-hypopnea syndrome. Patient demonstrated great compliance with treatment, benefiting from treatment.Patient presently feel more sleepiness after COVID-19 last year. 2. Obesity. Patient increased her weight on 55 pounds comparing with previous visit. 3. History of hypertension, presently blood pressure is normal. 4. History of asthma. 5. History of sleep talking. 6. Status post COVID-19 in July 2021. 7. Status post left meniscus repair. Plan: 1. Continue using PAP equipment every night for the whole night. I changed the regimen of CPAP to AutoPap with range of pressure from 11-16 cm of water, because patient significantly increased to weight and feel more sleepiness. 2. To change air filter at least 1-2 times per month. 3. PAP unit should stay lower then position of the head. 4. Advised patient to remove all remaining water from humidifier canister daily and make it dry after each usage. Refill canister with fresh distilled water before each usage. 5. Sleep hygiene with regular time in bed for at least 8 hours. 6. Precautions related to driving. No driving if feel any sleepiness. 7. I will maintain prescription for PAP supplies including mask, tube, filters. 8. Follow up visit in 6 months or earlier if patient has any problems. 9. Watching weight. Thank you very much for allowing me to participate in the management of your patient. Arnav Vicente MD, PhD, FAASM. Diplomat of [place] [employer], Sleep Medicine Board by [place] [employer] [facility] [place]
== END ==
LOC: SLEEP 16:16
PROVIDERS: ATTEND Internal Medicine
DX: G47.33 Obstructive sleep apnea (adult) (pediatric) (principal); E66.9 Obesity, unspecified; I10 Essential (primary) hypertension; J45.909 Unspecified asthma, uncomplicated; F17.200 Nicotine dependence, unspecified, uncomplicated; Z98.890 Other specified postprocedural states; Z86.16 Personal history of COVID-19; Z86.69 Personal history of other diseases of the nervous system and sense organs; Z91.040 Latex allergy status; Z88.6 Allergy status to analgesic agent; Z88.0 Allergy status to penicillin; Z88.5 Allergy status to narcotic agent; Z91.011 Allergy to milk products
CPT/HCPCS: 99212

== ENCOUNTER 2023-10-01 13:14 | Emergency (ER) | payer OTHER ==
[2023-10-01] MEDS ORDERED: SODIUM CHLORIDE 0.9% 1,000 ML IV ONE (16:32)
[2023-10-01] MEDS ORDERED: ONDANSETRON 4 MG/2 ML VIAL IVP STA (16:32)
--- NOTE | 2023-10-01 17:03 | ED ---
General Adult HPI - General Chief complaint: Nausea/Vomiting/Diarrhea Stated complaint: Post Back Injections-N/V Time Seen by Provider: 10/01/23 16:11 Source: patient, RN notes reviewed Mode of arrival: ambulatory Limitations: no limitations - History of Present Illness Initial comments: 43-year-old female presents emergency department for chief complaint of headache and nausea with vomiting following a cervical epidural steroid injection. She states that she had this done on Friday and notes that immediately after this she started vomiting. She denies fever, chills. Denies drainage from the injection site. - Related Data Home Medications Medication Instructions Recorded Confirmed No Known Home Medications 02/28/21 02/28/21 Allergies Allergy/AdvReac Type Severity Reaction Status Date / Time latex Allergy Unknown Verified 10/01/23 13:33 Milk Containing Products Allergy Unknown Verified 10/01/23 13:33 (Dairy) [Dairy] NSAIDS (Non-Steroidal Allergy Anaphylaxis Verified 10/01/23 13:33 Anti-Inflamma Penicillins Allergy Rash/Hives Verified 10/01/23 13:33 morphine AdvReac "does not Verified 10/01/23 13:33 work" Review of Systems ROS Statement: Those systems with pertinent positive or pertinent negative responses have been documented in the HPI. ROS Other: All systems not noted in ROS Statement are negative. Past Medical History Past Medical History: Asthma Additional Past Medical History / Comment(s): chronic back pain History of Any Multi-Drug Resistant Organisms: MRSA Date of last positivie culture/infection: 06/11/2014 MDRO Source:: Right Axilla Past Surgical History: Tubal Ligation Additional Past Surgical History / Comment(s): spinal steroid injections Past Psychological History: Anxiety, Depression Smoking Status: Current every day smoker Past Alcohol Use History: Occasional Past Drug Use History: Marijuana General Exam Limitations: no limitations General appearance: alert, in no apparent distress Head exam: Present: atraumatic, normocephalic, normal inspection Eye exam: Present: normal appearance, PERRL, EOMI. Absent: scleral icterus, conjunctival injection, periorbital swelling ENT exam: Present: normal exam, mucous membranes moist, normal external ear exam Neck exam: Present: normal inspection. Absent: tenderness, meningismus, lymphadenopathy Respiratory exam: Present: normal lung sounds bilaterally. Absent: respiratory distress, wheezes, rales, rhonchi, stridor Cardiovascular Exam: Present: regular rate, normal rhythm, normal heart sounds. Absent: systolic murmur, diastolic murmur, rubs, gallop, clicks GI/Abdominal exam: Present: soft, normal bowel sounds. Absent: distended, tenderness, guarding, rebound, rigid Extremities exam: Present: normal inspection, full ROM, normal capillary refill. Absent: tenderness, pedal edema, joint swelling, calf tenderness Back exam: Present: normal inspection Neurological exam: Present: alert, oriented X3, CN II-XII intact Psychiatric exam: Present: normal affect, normal mood Skin exam: Present: warm, dry, intact, normal color. Absent: rash Course Vital Signs 10/01/23 10/01/23 10/01/23 13:30 17:13 19:39 Temperature 97.4 F L Pulse Rate 95 71 68 Respiratory 18 18 18 Rate Blood Pressure 125/98 110/67 99/66 O2 Sat by Pulse 97 98 98 Oximetry 10/01/23 10/01/23 19:41 20:01 Temperature 97.6 F Pulse Rate 55 L Respiratory 16 Rate Blood Pressure 119/78 114/78 O2 Sat by Pulse 100 Oximetry Medical Decision Making - Medical Decision Making Was pt. sent in by a medical professional or institution (, PA, FIELD EXAMINER, urgent care, hospital, or intermediate...) When possible be specific @ -No Did you speak to anyone other than the patient for history (EMS, parent, family, police, friend...)? What history was obtained from this source @ -No Did you review nursing and triage notes (agree or disagree)? Why? @ -I reviewed and agree with nursing and triage notes Were old charts reviewed (outside hosp., previous admission, EMS record, old EKG, old radiological studies, urgent care reports/EKG's, intermediate records)? Report findings @ -No old charts were reviewed Differential Diagnosis (chest pain, altered mental status, abdominal pain women, abdominal pain men, vaginal bleeding, weakness, fever, dyspnea, syncope, headache, dizziness, GI bleed, back pain, seizure, CVA, palpatations, mental health, musculoskeletal)? @ -Differential Headache: Migraine, tension, cluster, carbon monoxide, central venous thrombosis, pension karma temporal arteritis, acute closure glaucoma, intercranial hemorrhage, mastoiditis, sinusitis, head injury, this is not meant to be an all-inclusive list. EKG interpreted by me (3pts min.). @ -None X-rays interpreted by me (1pt min.). @ -None done CT interpreted by me (1pt min.). @ -CT brain and C-spine show foci of gas in the bilateral frontal horns of the ventricles which could be secondary to patient's procedure U/S interpreted by me (1pt. min.). @ -None done What testing was considered but not performed or refused? (CT, X-rays, U/S, labs)? Why? @ -None What meds were considered but not given or refused? Why? @ -None Did you discuss the management of the patient with other professionals (temo welsh i.e. , PA, FIELD EXAMINER, lab, RT, psych nurse, social work specialist, technology sales specialist, teacher, home school liaison officer, corrections caseworker)? Give summary @ -Management discussed with patient's neurologist, Dr. Ansari who states that this is a possible consultation of the cervical spinal injection and is self limited and the patient should rest in a lying position Was smoking cessation discussed for >3mins.? @ -No Was critical care preformed (if so, how long)? @ -No Were there social determinants of health that impacted care today? How? (Homelessness, low income, unemployed, alcoholism, drug addiction, transp ortation, low edu. Level, literacy, decrease access to med. care, nursing home, rehab)? @ -No Was there de-escalation of care discussed even if they declined (Discuss DNR or withdrawal of care, Hospice)? DNR status @ -No What co-morbidities impacted this encounter? (DM, HTN, Smoking, COPD, CAD, Cancer, CVA, ARF, Chemo, Hep., AIDS, mental health diagnosis, sleep apnea, morbid obesity)? @ -None Was patient admitted / discharged? Hospital course, mention meds given and route, prescriptions, significant lab abnormalities, going to OR and other pertinent info. @ -Discharged. Patient presented to the emergency department for evaluation of headache and nausea with vomiting following a cervical epidural steroid injection. Patient has been receiving descent 2016 and has not had this reaction in the past. Laboratory studies obtained. Patient's WBC 15.9 and reactive to patient's vomiting and the steroid injection. Laboratory studies otherwise unremarkable. CT brain and C-spine shows a foci of gas in the bilateral horns of the ventricles. This was discussed with the patient's neurologist who states that this is a common complication and is self limited. Discussed with patient the findings and treatment. Patient given 1 L normal saline, Zofran and Dilaudid for pain. Patient will be discharged home. Patient stable at time of discharge. Case discussed with Dr. Arauz Undiagnosed new problem with uncertain prognosis? @ -No Drug Therapy requiring intensive monitoring for toxicity (Heparin, Nitro, Insulin, Cardizem)? @ -No Were any procedures done? @ -No Diagnosis/symptom? @ -headache, nausea and vomiting Acute, or Chronic, or Acute on Chronic? @ -acute Uncomplicated (without systemic symptoms) or Complicated (systemic symptoms)? @ -uncomplicated Side effects of treatment? @ -No Exacerbation, Progression, or Severe Exacerbation? @ -No Poses a threat to life or bodily function? How? (Chest pain, [place], [place], pneumonia, PE, COPD, DKA, ARF, appy, cholecystitis, CVA, Diverticulitis, Homicidal, Suicidal, threat to staff... and all critical care pts) @ -No - Lab Data Result diagrams: 10/01/23 17:05 10/01/23 17:05 Lab Results 10/01/23 10/01/23 10/01/23 Range/Units 17:05 17:05 17:05 WBC 15.9 H (3.8-10.6) k/uL RBC 5.70 H (3.80-5.40) m/uL Hgb 16.2 H (11.4-16.0) gm/dL Hct 49.8 H (34.0-46.0) % MCV 87.4 (80.0-100.0) fL MCH 28.5 (25.0-35.0) pg MCHC 32.6 (31.0-37.0) g/dL RDW 14.0 (11.5-15.5) % Plt Count 344 (150-450) k/uL MPV 7.8 Neutrophils % 79 % Lymphocytes % 14 % Monocytes % 4 % Eosinophils % 1 % Basophils % 0 % Neutrophils # 12.6 H (1.3-7.7) k/uL Lymphocytes # 2.2 (1.0-4.8) k/uL Monocytes # 0.6 (0-1.0) k/uL Eosinophils # 0.2 (0-0.7) k/uL Basophils # 0.1 (0-0.2) k/uL PT 10.7 (10.0-12.5) sec INR 1.0 (<1.2) APTT 26.7 (22.0-30.0) sec Sodium 143 (137-145) mmol/L Potassium 4.6 (3.5-5.1) mmol/L Chloride 109 H (98-107) mmol/L Carbon Dioxide 25 (22-30) mmol/L Anion Gap 9 mmol/L BUN 17 (7-17) mg/dL Creatinine 0.88 (0.52-1.04) mg/dL Est GFR (CKD-EPI)AfAm >90 (>60 ml/min/1.73 sqM) Est GFR (CKD-EPI)NonAf 81 (>60 ml/min/1.73 sqM) Glucose 105 H (74-99) mg/dL Calcium 9.8 (8.4-10.2) mg/dL Total Bilirubin 0.5 (0.2-1.3) mg/dL AST 18 (14-36) U/L ALT 25 (4-34) U/L Alkaline Phosphatase 70 (38-126) U/L Total Protein 7.2 (6.3-8.2) g/dL Albumin 4.4 (3.5-5.0) g/dL Disposition Clinical Impression: Headache, Nausea and vomiting Disposition: HOME SELF-CARE Condition: Stable Instructions (If sedation given, give patient instructions): Acute Nausea and Vomiting (ED) Additional Instructions: Please follow up with your neurologist. Return to the emergency department for new or worsening symptoms. Is patient prescribed a controlled substance at d/c from ED?: No Referrals: Siddhartha Reid MD [Primary Care Provider] - 1-2 days
[2023-10-01 17:19] LABS: Basophils # (A) 0.1 k/uL (0-0.2); Basophils % (A) 0 %; Eosinophils # (A) 0.2 k/uL (0-0.7); Eosinophils % (A) 1 %; HCT 49.8 % (34.0-46.0); HGB 16.2 gm/dL (11.4-16.0); Lymphocytes # (A) 2.2 k/uL (1.0-4.8); Lymphocytes % (A) 14 %; MCH 28.5 pg (25.0-35.0); MCHC 32.6 g/dL (31.0-37.0); MCV 87.4 fL (80.0-100.0); Mean Platelet Volume 7.8; Monocytes # (A) 0.6 k/uL (0-1.0); Monocytes % (A) 4 %; Neutrophils # (A) 12.6 k/uL (1.3-7.7); Neutrophils % (A) 79 %; Platelet Count 344 k/uL (150-450); WBC 15.9 k/uL (3.8-10.6)
[2023-10-01 17:30] LABS: Partial Thromboplastin Time 26.7 sec (22.0-30.0); Prothrombin Time 10.7 sec (10.0-12.5)
[2023-10-01 17:37] LABS: ALT 25 U/L (4-34); AST 18 U/L (14-36); African American GFR (CKD) >90 (>60 ml/min/1.73 sqM); Albumin 4.4 g/dL (3.5-5.0); Alkaline Phosphatase 70 U/L (38-126); Anion Gap 9 mmol/L; Blood Urea Nitrogen 17 mg/dL (7-17); Calcium 9.8 mg/dL (8.4-10.2); Carbon Dioxide 25 mmol/L (22-30); Chloride 109 mmol/L (98-107); Glucose 105 mg/dL (74-99); Non-African American GFR(CKD) 81 (>60 ml/min/1.73 sqM); Potassium 4.6 mmol/L (3.5-5.1); Sodium 143 mmol/L (137-145); Total Bilirubin 0.5 mg/dL (0.2-1.3); Total Protein 7.2 g/dL (6.3-8.2)
--- NOTE | 2023-10-01 17:57 | CT ---
EXAMINATION TYPE: CT brain cspine wo con CT DLP: 1874.4 mGycm, Automated exposure control for dose reduction was used. DATE OF EXAM: 10/01/2023 5:02 PM COMPARISON: None. CLINICAL INDICATION:Female, 43 years old with history of pain after epidural injection; pain after ep idural pain injection TECHNIQUE: Brain: Multiple axial CT images of the brain were obtained without IV contrast. Cspine: Axial CT images from the skull base to the inferior aspect of T2 we obtained without intraven ous contrast. Coronal and sagittal reformatted images were also reviewed. FINDINGS: Brain: Extra-axial spaces: No abnormal extra-axial fluid collections. Ventricular system: Within normal limits, 2 foci of gas in the anterior horns of the lateral Cerebral parenchyma: No acute intraparenchymal hemorrhage or mass effect. The duvall-white junction is well differentiated. Cerebellum: Unremarkable. Mass effect: No evidence of midline shift. Intracranial vasculature: unremarkable Soft tissues: Normal. Calvarium/osseous structures: No depressed skull fracture. Paranasal sinuses and mastoid air cells: Mild scattered mucosal thickening and or secretions. Visualized orbits: Orbital contents are intact. Cervical spine: Fracture: None. Osseous structures: Unremarkable Vertebral alignment: Within normal limits. Spinal canal/Neural Foramina: No evidence of significant spinal canal narrowing. No evidence for sign ificant neural foraminal stenosis. Neck soft tissues: Prevertebral soft tissues are within normal limits. Other: The airway is patent. The lung apices are clear. IMPRESSION: 1. Foci of gas in the bilateral frontal horns of the ventricles could be secondary to patient's proc edure today. Otherwise no evidence for acute process. 2. No evidence of cervical spine fracture. 3. Mild multilevel degenerative disc disease.
[2023-10-01] MEDS ORDERED: HYDROmorphone 0.5 MG/0.5 ML SYRINGE IVP STA (18:51)
[2023-10-01] MEDS ORDERED: METOCLOPRAMIDE 5 MG/ML 2 ML VIAL IVP STA (19:26)
[2023-10-01] MEDS ORDERED: ONDANSETRON 4 MG ODT STARTER PACK 2 TAB BTL PO STA (19:46)
[2023-10-01 20:18] VITALS: BP 114/78; PULSE 55; RESP 16; TEMP 97.6
== END 2023-10-01 20:03 | disposition home or self-care (01) ==
LOC: EC 13:14
DX: R11.2 Nausea with vomiting, unspecified (principal); R51.9 Headache, unspecified; J45.909 Unspecified asthma, uncomplicated; F17.200 Nicotine dependence, unspecified, uncomplicated; F12.90 Cannabis use, unspecified, uncomplicated; Z86.59 Personal history of other mental and behavioral disorders; Z88.0 Allergy status to penicillin; Z91.040 Latex allergy status; Z88.5 Allergy status to narcotic agent; Z91.011 Allergy to milk products; Z88.6 Allergy status to analgesic agent
CPT/HCPCS: 36415; 80053; 85025; 85610; 85730; 72125; 70450; 99284; 96374; 96375 ×2; 96361; J2765; J2405; S0119; J1170

== ENCOUNTER 2023-10-04 16:57 | Emergency (ER) | payer OTHER ==
[2023-10-04 17:23] VITALS: RESP 18
--- NOTE | 2023-10-04 18:28 | ED ---
General Adult HPI - General Chief complaint: Recheck/Abnormal Lab/Rx Stated complaint: Headache,weakness,back pain Time Seen by Provider: 10/04/23 17:07 Source: patient Mode of arrival: ambulatory Limitations: no limitations - History of Present Illness Initial comments: 43-year-old female presenting to the ED with a chief complaint of headache. Patient initially seen here on 10/01/23 after receiving cool spinal injection with complaints of headache and nausea. At this time she had a CAT scan of the brain without contrast performed that showed foci of gas in the bilateral frontal horns of the ventricles. This was discussed with Dr. Ansari, who advised that this was likely a complication from recent injection and symptoms are typically self limited. She was then discharged home. Patient presenting again today with headache and nausea. Due to continued symptoms and called Dr. Ansari, who advised patient to present to the ED for further evaluation. Since prior evaluation, reports headache and nausea has been unchanged. However, now reports she has developed upper back pain, lower back pain, chills, paresthesias down the entire right side of her body including her groin, and has been uncontrollably leaking urine. Patient denied fever. No chest pain or shortness of breath. No other complaints. - Related Data Home Medications Medication Instructions Recorded Confirmed No Known Home Medications 02/28/21 02/28/21 Allergies Allergy/AdvReac Type Severity Reaction Status Date / Time latex Allergy Unknown Verified 10/04/23 17:01 Milk Containing Products Allergy Unknown Verified 10/04/23 17:01 (Dairy) [Dairy] NSAIDS (Non-Steroidal Allergy Anaphylaxis Verified 10/04/23 17:01 Anti-Inflamma Penicillins Allergy Rash/Hives Verified 10/04/23 17:01 morphine AdvReac "does not Verified 10/04/23 17:01 work" Review of Systems ROS Statement: Those systems with pertinent positive or pertinent negative responses have been documented in the HPI. ROS Other: All systems not noted in ROS Statement are negative. Past Medical History Past Medical History: Asthma Additional Past Medical History / Comment(s): chronic back pain History of Any Multi-Drug Resistant Organisms: MRSA Date of last positivie culture/infection: 06/11/2014 MDRO Source:: Right Axilla Past Surgical History: Tubal Ligation Additional Past Surgical History / Comment(s): spinal steroid injections Past Psychological History: Anxiety, Depression Smoking Status: Current every day smoker Past Alcohol Use History: Occasional Past Drug Use History: Marijuana General Exam Limitations: no limitations General appearance: alert Neck exam: Present: other (Negative Kernig's and Brudzinski sign.) Respiratory exam: Present: normal lung sounds bilaterally Cardiovascular Exam: Present: regular rate, normal rhythm GI/Abdominal exam: Present: soft Rectal exam: Present: other (Chaperoned by Veronika SANABRIA. Good rectal tone) Extremities exam: Present: other (Strength and sensation equal and symmetric in bilateral upper and lower extremities.) Back exam: Present: normal inspection, other (Midline lower cervical/upper thoracic and lower lumbar spinal tenderness to palpation.) Neurological exam: Present: alert, oriented X3 Skin exam: Present: warm, dry Course Vital Signs 10/04/23 10/04/23 16:58 18:48 Temperature 97.9 F 98.5 F Pulse Rate 84 67 Respiratory 18 18 Rate Blood Pressure 115/88 147/99 O2 Sat by Pulse 98 100 Oximetry Medical Decision Making - Medical Decision Making Was pt. sent in by a medical professional or institution (, PA, MOTEL FRONT DESK CLERK, urgent care, hospital, or senior care...) When possible be specific @ -No Did you speak to anyone other than the patient for history (EMS, parent, family, police, friend...)? What history was obtained from this source @ -No Did you review nursing and triage notes (agree or disagree)? Why? @ -I reviewed and agree with nursing and triage notes Were old charts reviewed (outside hosp., previous admission, EMS record, old EKG, old radiological studies, urgent care reports/EKG's, senior care records)? Report findings @ -Prior visit and CAT scan reviewed. For further details please see HPI. Differential Diagnosis (chest pain, altered mental status, abdominal pain women, abdominal pain men, vaginal bleeding, weakness, fever, dyspnea, syncope, headache, dizziness, GI bleed, back pain, seizure, CVA, palpatations, mental health, musculoskeletal)? @ -Differential Back Pain: Strain, zoster, cauda equina syndrome, epidural abscess, vertebral osteomyelitis, discitis, fracture, subluxation, disc herniation, DJD, spinal stenosis, dissection, AAA, pancreatitis, peptic ulcer disease, pyelonephritis, kidney stone, this is not meant to be an all-inclusive list. EKG interpreted by me (3pts min.). @ -As above X-rays interpreted by me (1pt min.). @ -None done CT interpreted by me (1pt min.). @ -CT cervical, thoracic, and lumbar spine with contrast unable to find evidence of epidural abscess at this time. CT brain showed resolution of air. U/S interpreted by me (1pt. min.). @ -None done What testing was considered but not performed or refused? (CT, X-rays, U/S, labs)? Why? @ -None What meds were considered but not given or refused? Why? @ -None Did you discuss the management of the patient with other professionals (professionals i.e. Dr., PA, MOTEL FRONT DESK CLERK, lab, RT, psych nurse, social and political studies professor, seed buyer, teacher, juvenile corrections officer, piano case and bench assembler)? Give summary @ -Spoke to Alejo Streeter of orthopedics, who reccomended transfer at this time Spoke to Dr. Romero, who initially advised transfer was inappropriate as he reported Dr. Jackson works at this facility and covers for spine. Spoke to Dr. Mora of orthopedics, who again stated that patient would need to be transferred. Spoke to Dr. Banuelos, who accepted ED to ED transfer. Was smoking cessation discussed for >3mins.? @ -No Was critical care preformed (if so, how long)? @ -No Were there social determinants of health that impacted care today? How? ( Homelessness, low income, unemployed, alcoholism, drug addiction, transportation, low edu. Level, literacy, decrease access to med. care, half-way, rehab)? @ -No Was there de-escalation of care discussed even if they declined (Discuss DNR or withdrawal of care, Hospice)? DNR status @ -No What co-morbidities impacted this encounter? (DM, HTN, Smoking, COPD, CAD, Cancer, CVA, ARF, Chemo, Hep., AIDS, mental health diagnosis, sleep apnea, morbid obesity)? @ -None Was patient admitted / discharged? Hospital course, mention meds given and route, prescriptions, significant lab abnormalities, going to OR and other pertinent info. @ -Transfer 43-year-old female who initially presented on 10/01/23 with symptoms of headache and nausea after cervical spine injection. At this time had a CT that showed foci of air within the ventricles. This was discussed with Dr. Bradford, who reported this was likely complication of recent injection and likely self limited. However, patient returned again today with continued symptoms and now also additional symptoms of paresthesias on her right side, chills, urinary incontinence, upper and lower back pain. Laboratory studies reviewed. CBC at this time shows a white count of 12.6. Prior on 10/01/23 15.9. Chemistry panel largely unremarkable. Urine also largely unremarkable. CT brain shows resolution of air within the ventricle. The CT cervical, thoracic, lumbar spine with contrast at this time unable to rule out epidural abscess. This was discussed with both Alejo Streeter PA-C and Dr. Mora, who reccomended transfer of the patient. Patient transferred to [facility]. Undiagnosed new problem with uncertain prognosis? @ -No Drug Therapy requiring intensive monitoring for toxicity (Heparin, Nitro, Insulin, Cardizem)? @ -No Were any procedures done? @ -No Diagnosis/symptom? @ -Headache, nausea Acute, or Chronic, or Acute on Chronic? @ -Acute Uncomplicated (without systemic symptoms) or Complicated (systemic symptoms)? @ -Complicated Side effects of treatment? @ -No Exacerbation, Progression, or Severe Exacerbation? @ -No Poses a threat to life or bodily function? How? (Chest pain, [place], CO, pneumonia, PE, COPD, DKA, ARF, appy, cholecystitis, CVA, Diverticulitis, Homicidal, Suicidal, threat to staff... and all critical care pts) @ -Possibly - Lab Data Result diagrams: 10/04/23 17:58 10/04/23 17:58 Lab Results 10/04/23 10/04/23 10/04/23 Range/Units 17:58 17:58 17:58 WBC 12.6 H (3.8-10.6) k/uL RBC 5.82 H (3.80-5.40) m/uL Hgb 16.9 H (11.4-16.0) gm/dL Hct 50.7 H (34.0-46.0) % MCV 87.0 (80.0-100.0) fL MCH 28.9 (25.0-35.0) pg MCHC 33.3 (31.0-37.0) g/dL RDW 13.7 (11.5-15.5) % Plt Count 351 (150-450) k/uL MPV 7.4 Neutrophils % 72 % Lymphocytes % 19 % Monocytes % 4 % Eosinophils % 3 % Basophils % 1 % Neutrophils # 9.1 H (1.3-7.7) k/uL Lymphocytes # 2.4 (1.0-4.8) k/uL Monocytes # 0.5 (0-1.0) k/uL Eosinophils # 0.4 (0-0.7) k/uL Basophils # 0.1 (0-0.2) k/uL Sodium 141 (137-145) mmol/L Potassium 4.6 (3.5-5.1) mmol/L Chloride 109 H (98-107) mmol/L Carbon Dioxide 18 L (22-30) mmol/L Anion Gap 14 mmol/L BUN 12 (7-17) mg/dL Creatinine 0.76 (0.52-1.04) mg/dL Est GFR (CKD-EPI)AfAm >90 (>60 ml/min/1.73 sqM) Est GFR (CKD-EPI)NonAf >90 (>60 ml/min/1.73 sqM) Glucose 100 H (74-99) mg/dL Calcium 9.6 (8.4-10.2) mg/dL Total Bilirubin 0.8 (0.2-1.3) mg/dL AST 25 (14-36) U/L ALT 28 (4-34) U/L Alkaline Phosphatase 79 (38-126) U/L C-Reactive Protein 1.1 H (<1.0) mg/dL Total Protein 7.4 (6.3-8.2) g/dL Albumin 4.5 (3.5-5.0) g/dL Urine Color Yellow Urine Appearance Cloudy H (Clear) Urine pH 5.5 (5.0-8.0) Ur Specific Reform 1.026 (1.001-1.035) Urine Protein Negative (Negative) Urine Glucose (UA) Negative (Negative) Urine Ketones Negative (Negative) Urine Blood Negative (Negative) Urine Nitrite Negative (Negative) Urine Bilirubin Negative (Negative) Urine Urobilinogen <2.0 (<2.0) mg/dL Ur Leukocyte Esterase Negative (Negative) Urine RBC 1 (0-5) /hpf Urine WBC <1 (0-5) /hpf Ur Squamous Epith Cells 10 H (0-4) /hpf Urine Bacteria Rare H (None) /hpf Urine Mucus Few H (None) /hpf Disposition Clinical Impression: Back pain Disposition: OTHER INSTITUTION NOT DEFINED Condition: Good Referrals: Siddhartha Reid MD [Primary Care Provider] - 1-2 days Time of Disposition: 21:00 - Out of Hospital Transfer - Req. Specs Out of Hospital Transfer - Requested Specifics: Other Emergency Center ([facility])
[2023-10-04 18:29] LABS: Basophils # (A) 0.1 k/uL (0-0.2); Basophils % (A) 1 %; Eosinophils # (A) 0.4 k/uL (0-0.7); Eosinophils % (A) 3 %; HCT 50.7 % (34.0-46.0); HGB 16.9 gm/dL (11.4-16.0); Lymphocytes # (A) 2.4 k/uL (1.0-4.8); Lymphocytes % (A) 19 %; MCH 28.9 pg (25.0-35.0); MCHC 33.3 g/dL (31.0-37.0); Mean Platelet Volume 7.4; Monocytes # (A) 0.5 k/uL (0-1.0); Monocytes % (A) 4 %; Neutrophils # (A) 9.1 k/uL (1.3-7.7); Neutrophils % (A) 72 %; Platelet Count 351 k/uL (150-450); RBC 5.82 m/uL (3.80-5.40); RDW 13.7 % (11.5-15.5); WBC 12.6 k/uL (3.8-10.6)
[2023-10-04] MEDS ORDERED: ONDANSETRON 4 MG/2 ML VIAL IVP STA ×2 (18:31→21:20)
[2023-10-04] MEDS ORDERED: HYDROmorphone 1 MG/ML 1 ML SYRINGE IVP STA ×2 (18:31→21:19)
[2023-10-04 18:42] LABS: ALT 28 U/L (4-34); AST 25 U/L (14-36); African American GFR (CKD) >90 (>60 ml/min/1.73 sqM); Albumin 4.5 g/dL (3.5-5.0); Alkaline Phosphatase 79 U/L (38-126); Anion Gap 14 mmol/L; Blood Urea Nitrogen 12 mg/dL (7-17); C Reactive Protein 1.1 mg/dL (<1.0); Calcium 9.6 mg/dL (8.4-10.2); Carbon Dioxide 18 mmol/L (22-30); Chloride 109 mmol/L (98-107); Glucose 100 mg/dL (74-99); Non-African American GFR(CKD) >90 (>60 ml/min/1.73 sqM); Potassium 4.6 mmol/L (3.5-5.1); Sodium 141 mmol/L (137-145); Total Bilirubin 0.8 mg/dL (0.2-1.3); Total Protein 7.4 g/dL (6.3-8.2)
[2023-10-04 18:50] LABS: Appearance,Urine Cloudy (Clear); Bacteria,Urine Rare /hpf; Bilirubin,Urine Negative (Negative); Blood,Urine Negative (Negative); Color,Urine Yellow; Glucose,Urine (UA) Negative (Negative); Ketones,Urine Negative (Negative); Leukocyte Esterase,Urine Negative (Negative); Mucus,Urine Few /hpf; Nitrite,Urine Negative (Negative); PH, Urine 5.5 (5.0-8.0); Protein,Urine Negative (Negative); RBC,Urine 1 /hpf (0-5); Specific Gravity,Urine 1.026 (1.001-1.035); Squamous Epithelial Cell,Urine 10 /hpf (0-4); Urobilinogen,Urine <2.0 mg/dL (<2.0); WBC,Urine <1 /hpf (0-5)
[2023-10-04 18:52] VITALS: BP 147/99; PULSE 67; TEMP 98.5
--- NOTE | 2023-10-04 18:58 | CT ---
EXAMINATION TYPE: CT brain wo con DATE OF EXAM: 10/04/2023 COMPARISON: 10/01/2023 HISTORY: 43-year-old female headache/neck pain x1 week post cortisone shot in neck r/o abscess TECHNIQUE: Examination was done in axial plane without intravenous contrast. Coronal and sagittal r econstructions performed. CT DLP: 1160.4 mGycm Automated exposure control for dose reduction was used. FINDINGS: There is no evidence of acute intracranial hemorrhage, acute ischemic changes, mass, mass-effect, or extra-axial fluid collection. There is no effacement of cerebral sulci or basal subarachnoid cister ns. There is no hydrocephalus. There is no midline shift. Mathews-white matter distinction is preserv ed. The previous air within the ventricular system has resolved. Trace mucosal thickening floor of the right maxillary sinus. An old, large blowout fracture of the le ft medial orbital wall. Polyps or mucous retention cyst measuring 9 mm in the right sphenoid sinus. M astoid air cells are well pneumatized. IMPRESSION: 1. The previous air within the ventricular system has resolved. 2. No acute intracranial abnormality seen. 3. Redemonstrated old large blowout fracture left medial orbital wall.
--- NOTE | 2023-10-04 19:10 | CT ---
EXAMINATION TYPE: CT CervThorLumbar spine w con DATE OF EXAM: 10/04/2023 COMPARISON: Cervical spine 10/01/2023 HISTORY: 43-year-old female headache/neck pain x1 week post cortisone shot in neck r/o abscess TECHNIQUE: Contiguous axial scanning of the cervical thoracic, and lumbar spine performed with IV Con trast, patient injected with 100 mL of Isovue 300. Coronal and sagittal reconstructions performed. CT DLP: 4303 mGycm Automated exposure control for dose reduction was used. FINDINGS: Cervical spine: Very large patient body habitus causing extensive noise artifact and limiting detailed assessment yesi ecially of the spinal canal region. Based on this exam, unable to adequately exclude an epidural absc ess. Crowded prevertebral structures due to large body habitus. Some degenerative change C1 dens articulat ion. No craniocervical junction abnormality or predental space widening. Mild to moderate degenerative disc disease especially C4-C5 and C6-7. Scattered facet and uncovertebral joint arthropathy is also noted. No obvious fracture is seen. No malalignment. Changes result in mild right neuroforaminal stenosis and C4-C5. Thoracic spine: Small hiatal hernia. Severe fatty infiltration of the liver for which appropriate clinical management is advised. By noise Limited CT, no obvious abnormality of the spinal canal is appreciated. Vertebral body height s are preserved and alignment is maintained. No significant bony neuroforaminal narrowing identified. Lumbar spine: Vertebral body heights are preserved and alignment is maintained. Noise artifact related to body habitus limiting detailed assessment of the spinal canal. There is moderate degenerative disc disease L5-S1 and L4-L5 with desiccated and narrowed discs. Facet arthropathy also present in the lower lumbar spine. Disc intravenous to moderate neuroforaminal stenosis on both sides at L5-S1 and on the right at L4-L5. Mild on the left at L4-L5. IMPRESSION: 1. NOTE THE EXTENSIVE ARTIFACTS DUE TO THE PATIENT'S VERY LARGE BODY HABITUS LIMITING ASSESSMENT WYATT CIALLY OF THE SPINAL CANAL. IF PERSISTENT CONCERN FOR EPIDURAL ABSCESS, MRI WOULD NEED TO BE CONSIDER ED. THE CERVICAL AND LUMBAR SPINAL CANALS ARE ESPECIALLY MARKEDLY LIMITED. 2. Cervical spine with mild to moderate degenerative disc disease at C4-C5 and C6-C7. Scattered facet and uncovertebral joint arthropathy also present. Moderate neuroforaminal stenosis at C4-C5. 3. Thoracic spine without vertebral compression collapse or malalignment. 4. Lumbar spine with moderate degenerative disc disease L4-L5 and L5-S1 along with hypertrophic facet arthropathy. This contributes to moderate bilateral neuroforaminal stenosis at L5-S1 and on the righ t at L4-L5. 5. Severe fatty infiltration of the liver. Correlate with LFTs, lipid profile, and patient risk facto rs. Appropriate clinical management is advised. 6. Small hiatal hernia.
[2023-10-05 10:41] LABS: Erythrocyte Sedimentation Rate 30 mm/Hr (0-20)
== END 2023-10-04 22:10 | disposition other institution (70) ==
LOC: EC 16:57
DX: M54.50 Low back pain, unspecified (principal); J45.909 Unspecified asthma, uncomplicated; F17.200 Nicotine dependence, unspecified, uncomplicated; F12.90 Cannabis use, unspecified, uncomplicated; Z86.59 Personal history of other mental and behavioral disorders; Z91.040 Latex allergy status; Z91.011 Allergy to milk products; Z88.6 Allergy status to analgesic agent; Z88.5 Allergy status to narcotic agent; Z88.0 Allergy status to penicillin; K44.9 Diaphragmatic hernia without obstruction or gangrene; K76.0 Fatty (change of) liver, not elsewhere classified
CPT/HCPCS: 80053; 85652; 85025; 86140; 72129; 72126; 72132; 70450; 99285; 96374; 96375; 96376 ×2; J2405; J1170; Q9967; 36415; 81001

== ENCOUNTER → 2024-02-05 | Outpatient (CLI) | payer OTHER ==
[2024-02-05 19:02] LABS: Basophils # (A) 0.09 X 10*3/uL (0.00-0.10); Eosinophils # (A) 0.37 X 10*3/uL (0.04-0.35); Eosinophils % (A) 4.2 %; HCT 50.1 % (37.2-46.3); HGB 16.1 g/dL (12.0-15.0); Lymphocytes # (A) 3.02 X 10*3/uL (0.90-5.00); Lymphocytes % (A) 34.2 %; MCH 27.7 pg (27.0-32.0); MCHC 32.1 g/dL (32.0-37.0); MCV 86.1 FL (80.0-97.0); Mean Platelet Volume 9.5 FL (9.5-12.2); Monocytes # (A) 0.53 X 10*3/uL (0.20-1.00); NRBC Per 100 WBC 0 X 10*3/uL (0.00-0.01); Neutrophils % (A) 54.4 %; Platelet Count 354 X 10*3/uL (140-440); RBC 5.82 X 10*6/uL (4.10-5.20); RDW 14.4 % (11.5-14.5); WBC 8.83 X 10*3/uL (4.50-10.00)
[2024-02-05 19:18] LABS: Erythrocyte Sedimentation Rate 20 mm/Hr (0-20); Microalbumin Creatinine Ratio <8 mg/g Cr (0-30)
[2024-02-05 19:39] LABS: % Iron Saturation 24.58 (12.00-45.00); ALT 20 U/L (8-44); AST 18 U/L (13-35); Albumin 4.7 g/dL (3.8-4.9); Albumin/Globulin Ratio 1.74 Ratio (1.60-3.17); Alkaline Phosphatase 85 U/L (41-126); Blood Urea Nitrogen 15.2 mg/dL (9.0-27.0); Calcium 10.2 mg/dL (8.7-10.3); Carbon Dioxide 22.3 mmol/L (21.6-31.8); Chloride 105 mmol/L (96-109); Chol/HDL Ratio 3.09 Ratio; Creatine Kinase 49 U/L (26-186); Globulin 2.7 g/dL (1.6-3.3); Glucose 99 mg/dL (70-110); Iron 88 UG/DL (50-170); LDL Cholesterol,Calculated 93.8 mg/dL (0.0-131.0); Potassium 5.1 mmol/L (3.5-5.5); Sodium 141 mmol/L (135-145); Total Bilirubin 0.5 mg/dL (0.3-1.2); Total Iron Binding Capacity 358 UG/DL (228-460); Total Protein 7.4 g/dL (6.2-8.2); Uric Acid 6.3 mg/dL (2.9-7.7); VLDL Calculation 17.12 mg/dL (5.00-40.00)
--- NOTE | 2024-02-06 07:33 | XR ---
EXAMINATION TYPE: XR chest 2V DATE OF EXAM: 02/05/2024 COMPARISON: 12/05/2021 HISTORY: Chest pain TECHNIQUE: Frontal and lateral views of the chest are obtained. FINDINGS: There is no focal air space opacity. No evidence for pneumothorax. No pleural effusion. The cardiac silhouette size is within normal limits. The osseous structures are grossly intact. IMPRESSION: 1. No acute cardiopulmonary process.
== END | disposition home or self-care (01) ==
LOC: LABWHC1 12:30
PROVIDERS: ATTEND Internal Medicine
DX: Z00.00 Encounter for general adult medical examination without abnormal findings (principal); D64.9 Anemia, unspecified; E78.5 Hyperlipidemia, unspecified; J44.89 Other specified chronic obstructive pulmonary disease; M10.9 Gout, unspecified; I10 Essential (primary) hypertension; E03.9 Hypothyroidism, unspecified; E66.9 Obesity, unspecified; M19.90 Unspecified osteoarthritis, unspecified site; E55.9 Vitamin D deficiency, unspecified; R07.9 Chest pain, unspecified; R80.9 Proteinuria, unspecified; R05.9 Cough, unspecified; R73.9 Hyperglycemia, unspecified
CPT/HCPCS: 36415; 71046; 80053; 80061; 82043; 82306; 82550; 82570; 82728; 83036; 83540; 83550; 83735; 84100; 84443; 84550; 85025; 85652; 86140

== ENCOUNTER → 2025-01-18 | Outpatient (CLI) | payer OTHER ==
[2025-01-18 17:31] LABS: Influenza A Not Detected (Not Detectd); Influenza B Not Detected (Not Detectd); RSV Not Detected (Not Detectd)
--- NOTE | 2025-01-18 21:55 | XR ---
EXAMINATION TYPE: XR chest 2V DATE OF EXAM: 01/18/2025 3:40 PM COMPARISON: 02/05/2024 CLINICAL INDICATION: Female, 44 years old with history of R059, Z112, Z139, [id number], TECHNIQUE: XR chest 2V view(s) obtained. FINDINGS: The heart size is normal. The pulmonary vasculature is normal. The lungs are clear. IMPRESSION: 1. No acute pulmonary process. [facility], , 01/18/2025 9:52 PM
[2025-01-19 02:29] LABS: Basophils # (A) 0.09 X 10*3/uL (0.00-0.10); Eosinophils # (A) 0.37 X 10*3/uL (0.04-0.35); Eosinophils % (A) 3.9 %; HCT 50.6 % (37.2-46.3); HGB 16.1 g/dL (12.0-15.0); Lymphocytes % (A) 30.9 %; MCH 27.9 pg (27.0-32.0); MCHC 31.8 g/dL (32.0-37.0); MCV 87.5 FL (80.0-97.0); Mean Platelet Volume 9.7 FL (9.5-12.2); Monocytes # (A) 0.52 X 10*3/uL (0.20-1.00); Monocytes % (A) 5.5 %; NRBC Per 100 WBC 0 X 10*3/uL (0.00-0.01); Neutrophils # (A) 5.49 X 10*3/uL (1.80-7.70); Neutrophils % (A) 58.6 %; Platelet Count 414 X 10*3/uL (140-440); RBC 5.78 X 10*6/uL (4.10-5.20); WBC 9.38 X 10*3/uL (4.50-10.00)
== END | disposition home or self-care (01) ==
LOC: LABWHC1 15:27
PROVIDERS: ATTEND Internal Medicine
DX: Z11.2 Encounter for screening for other bacterial diseases (principal); Z13.9 Encounter for screening, unspecified; Z11.52 Encounter for screening for COVID-19; J12.9 Viral pneumonia, unspecified; J06.9 Acute upper respiratory infection, unspecified; R05.9 Cough, unspecified
CPT/HCPCS: 36415; 71046; 85025; 87636